=== PATIENT | male | born 1990 | race African-American/Black ===

== ENCOUNTER 2020-04-21 15:49 | Emergency (ER) | payer OTHER, SELFPAY ==
--- NOTE | 2020-04-21 16:00 | PC.NURSE ---
Patient came up to the Intake desk and states that he is unable to wait and that his ride is here. Patient is leaving the ED prior to being seen or triaged.
== END 2020-04-21 16:50 | disposition left against medical advice (07) ==
DX: Z53.21 Procedure and treatment not carried out due to patient leaving prior to being seen by health care provider (principal)
CPT/HCPCS: 99199

== ENCOUNTER 2020-04-21 18:06 | Emergency (ER) | payer OTHER, SELFPAY ==
[2020-04-21 18:32] VITALS: BP 134/80; PULSE 111; RESP 19; TEMP 37.3; O2SAT 98
[2020-04-21 18:50] LABS: Basophils Absolute Auto 0.1 K/mm3 (0.0-0.1); Basophils Percent Auto 0.5 % (0.2-1.2); Eosinophils Percent Auto 0.3 % (0-4.4); Hematocrit 43.3 % (42.0-52.0); Hemoglobin 14.3 g/dL (14.0-18.0); Immature Granulocyte Absolute 0.03 K/mm3 (0.00-0.031); Immature Granulocyte Percent A 0.3 % (0-0.5); Lymphocytes Percent Auto 16.2 % (18.3-44.2); Mean Corpuscular Hemoglobin 28.2 pg (26-34); Mean Corpuscular Volume 85.4 fl (80-100); Monocytes Absolute Auto 0.4 K/mm3 (0.1-0.6); Monocytes Percent Auto 4.5 % (2.6-8.5); Neutrophils Absolute Auto 7.7 K/mm3 (1.3-6.7); Neutrophils Percent Auto 78.2 % (45.5-73.1); Platelet Count Result 298 k/mm3 (150-375); Red Blood Count 5.07 M/mm3 (4.6-6.20); Red Cell Distribution Width 14.3 % (11.5-14.5); White Blood Count 9.9 K/mm3 (4.5-10.0)
[2020-04-21 19:16] LABS: Alanine Aminotransferase 18 U/L (4-50); Albumin Level 4.8 g/dL (3.5-5.1); Alkaline Phosphatase 67 U/L (38-126); Anion Gap 12 mmol/L (8-16); Aspartate Amino Transferase 26 U/L (17-59); Bilirubin,Total 0.5 mg/dL (0.2-1.3); Blood Urea Nitrogen 12 mg/dL (9-20); Calcium 9.2 mg/dL (8.4-10.2); Carbon Dioxide 24 mmol/L (22-30); Chloride 104 mmol/L (98-107); Estimated CRCL calculation 92 ml/min; Estimated Glomerular Filt Rate > 60; Glucose 111 mg/dL (75-110); Lipase 46 U/L (23-300); Sodium 140 mmol/L (137-145)
--- NOTE | 2020-04-22 00:02 | ED.NAVMDI ---
HPI - Nausea/Vomiting/Diarrhea General Chief complaint: Nausea/Vomiting/Diarrhea Stated complaint: vomiting Time Seen by Provider: 04/21/20 23:51 History of Present Illness HPI Narrative: Intermittent vomiting for the past 2 weeks. He had an episode just prior to arrival. He was in the waiting room for nearly 6 hours and his symptoms have resolved. At this point he would just like a prescription for zofran and note for work saying that he was here all of this time. Related Data Home Medications Medication Instructions Recorded Confirmed alprazolam 06/11/19 paliperidone palmitate [Invega mg IM 06/11/19 Sustenna] Allergies Allergy/AdvReac Type Severity Reaction Status Date / Time No Known Allergies Allergy Unverified 12/06/16 22:54 Review of Systems Review of Systems: All systems reviewed & are unremarkable except as noted in HPI and below Constitutional: Constitutional: Denies chills, Denies fever(s) and Denies weakness ENT: Denies sore throat Cardiovascular: Cardiovascular: Denies chest pain Respiratory: Respiratory: Denies dyspnea Gastrointestinal: Gastrointestinal: Denies abdominal pain, Denies constipation, Denies diarrhea, Reports nausea and Reports vomiting Genitourinary: Genitourinary: Denies dysuria Musculoskeletal: Musculoskeletal: Denies back pain Neurologic: Denies dizziness and Denies weakness [facility] Past Medical History Medical History Healthy adult Social History Social History Smoking status: Never smoker Gender identity (if verbalized by the patient): Male Exam Const: General: healthy appearing, no acute distress and alert Orientation/consciousness: patient oriented x3 HENMT: Head: normal to inspection Resp: Effort & Inspection: normal respiratory effort Auscultation: clear to auscultation bilaterally, no rales, no rhonchi and no wheezes Cardio: Jugular venous distension: no JVD Rate: regular rate Rhythm: regular rhythm Heart sounds: no murmurs GI: Inspection: non-distended GI Palp: Yes Soft to palpation and No Tenderness to palpation present (GI) Skin: General skin exam: normal color Neuro: General: patient oriented x3 and moves all extremities Speech: normal speech Gait exam (Neuro): Normal gait present Extrem: General: no edema Psych: Appearance: well kempt Affect: normal affect Course Vital Signs Vital signs: Vital Signs Temperature 37.3 C 04/21/20 18:32 Pulse Rate 111 H 04/21/20 18:32 Respiratory Rate 19 04/21/20 18:32 Blood Pressure 134/80 04/21/20 18:32 Pulse Oximetry 98 04/21/20 18:32 Temperature 36.9 C 04/22/20 00:23 Pulse Rate 79 04/22/20 00:23 Respiratory Rate 18 04/22/20 00:23 Blood Pressure 143/83 H 04/22/20 00:23 Pulse Oximetry 99 04/22/20 00:23 MDM - Nausea/Vomiting/Diarrhea MDM Narrative Medical decision making narrative: Labs reassuring. Symptoms resolved. Medical Records Attestation: I reviewed the patient's medical records. Lab Data Attestation: I reviewed the patient's lab results. Result diagrams: 04/21/20 18:39 04/21/20 18:39 Labs: Lab Results 04/21/20 04/21/20 Range/Units 18:39 18:39 WBC 9.9 (4.5-10.0) K/mm3 RBC 5.07 (4.6-6.20) M/mm3 Hgb 14.3 (14.0-18.0) g/dL Hct 43.3 (42.0-52.0) % MCV 85.4 (80-100) fl MCH 28.2 (26-34) pg MCHC 33.0 (32-36) g/dl RDW 14.3 (11.5-14.5) % Plt Count 298 (150-375) k/mm3 MPV 9.0 (7.4-10.4) fl Immature Gran % (Auto) 0.3 (0-0.5) % Neut % (Auto) 78.2 H (45.5-73.1) % Lymph % (Auto) 16.2 L (18.3-44.2) % [place] % (Auto) 4.5 (2.6-8.5) % Eos % (Auto) 0.3 (0-4.4) % Baso % (Auto) 0.5 (0.2-1.2) % Lymph # (Auto) 1.60 (0.9-3.2) K/mm3 [place] # (Auto) 0.4 (0.1-0.6) K/mm3 Eos # (Auto) 0.0 (0-0.3) K/mm3 Baso # (Auto) 0.1 (0.0-0.1) K/mm3 Abs I
[2020-04-22 00:23] VITALS: BP 143/83; PULSE 79; RESP 18; TEMP 36.9; O2SAT 99
== END 2020-04-22 00:24 | disposition home or self-care (01) ==
PROVIDERS: Emergency Provider Emergency Medicine
DX: R11.2 Nausea with vomiting, unspecified (principal)
CPT/HCPCS: 36415; 80053; 83690; 85025; 99283

== ENCOUNTER 2020-07-06 02:00 | Emergency (ER) | payer OTHER, SELFPAY ==
[2020-07-06 02:02] VITALS: BP 149/89; PULSE 76; RESP 18; TEMP 36.4; O2SAT 100
--- NOTE | 2020-07-06 02:17 | ED.GENADULT ---
HPI - General Adult General Chief complaint: Ear Stated complaint: right ear pain Time Seen by Provider: 07/06/20 02:11 History of Present Illness HPI narrative: Patient is a 29-year-old gentleman who presents emerged part with chief complaint of right ear pain. The patient states that this been going on for several weeks states that it is a deep pain in his right ear and it is feels like pressure. The patient states it feels similar to whenever he had ear infection before in the past. Patient denies fever denies chills denies difficulty swallowing or difficulty breathing. Related Data Home Medications Medication Instructions Recorded Confirmed alprazolam 06/11/19 paliperidone palmitate [Invega mg IM 06/11/19 Sustenna] Allergies Allergy/AdvReac Type Severity Reaction Status Date / Time quetiapine [From Seroquel] Allergy Unknown Verified 07/06/20 02:05 trazodone Allergy Unknown Verified 07/06/20 02:05 Review of Systems Review of Systems: Narrative: A 10 system review of systems was completed on the patient and is negative except for what is stated in the HPI. Nursing and ancillary documentation was reviewed. [facility] Past Medical History Medical History Healthy adult Social History Social History Smoking status: Never smoker Gender identity (if verbalized by the patient): Male Exam Narrative: Exam Narrative: GENERAL: Well-appearing, well-nourished, and in no acute distress. HEAD: Normocephalic, atraumatic. EYES: PERRLA and EOMI. ENT: Nares clear, no rhinorrhea or epistaxis. Mucous membranes moist. Right tympanic membrane is slightly erythematous and slightly bulging. There is no effusion. NECK: Supple. CHEST: Clear to auscultation. No respiratory distress. HEART: Regular rate and rhythm. No murmur heard. Normal peripheral pulses. ABDOMEN: Soft, nontender, nondistended, normal active bowel sounds. EXTREMITIES: Normal range of motion. No edema. SKIN: Warm, dry, no rash. NEURO: No focal deficits. Alert and oriented x3. PSYCH: Normal mood and affect. Course Vital Signs Vital signs: Vital Signs Temperature 36.4 C 07/06/20 02:02 Pulse Rate 76 07/06/20 02:02 Respiratory Rate 18 07/06/20 02:02 Blood Pressure 149/89 H 07/06/20 02:02 Pulse Oximetry 100 07/06/20 02:02 Temperature 36.4 C 07/06/20 02:02 Pulse Rate 76 07/06/20 02:02 Respiratory Rate 18 07/06/20 02:02 Blood Pressure 149/89 H 07/06/20 02:02 Pulse Oximetry 100 07/06/20 02:02 Medical Decision Making Vital Signs Vital Signs: Vital Signs Temperature 36.4 C 07/06/20 02:02 Pulse Rate 76 07/06/20 02:02 Respiratory Rate 18 07/06/20 02:02 Blood Pressure 149/89 H 07/06/20 02:02 Pulse Oximetry 100 07/06/20 02:02 Temperature 36.4 C 07/06/20 02:02 Pulse Rate 76 07/06/20 02:02 Respiratory Rate 18 07/06/20 02:02 Blood Pressure 149/89 H 07/06/20 02:02 Pulse Oximetry 100 07/06/20 02:02 Discharge Plan Discharge Clinical Impression: Otitis media Qualifiers: Otitis media type: unspecified Chronicity: acute Qualified Code(s): H66.90 - Otitis media, unspecified, unspecified ear Patient Disposition: Home, Self-Care Condition: Stable Instructions: Antibiotic Form, Ear Infection (ED) Prescriptions: New amoxicillin 500 mg capsule 500 mg PO Q12H 10 Days Qty: 20 RF: 0 No Action alprazolam 2 mg tablet RF: 0 Invega Sustenna 156 mg/mL syringe IM RF: 0 ondansetron HCl [Zofran] 4 mg tablet 4 mg PO Q6H PRN (Reason: nausea and vomiting) Qty: 10 RF: 0 Follow-up/Referrals: Malcolm Langford MD [Physician] - PHYSICIAN,[employer] [Primary Care Provider] - Time of Disposition: 02:
[2020-07-06] MEDS: IBUPROFEN 400 MG TABLET 800 MG PO (02:34)
[2020-07-06] MEDS: AMOXICILLIN 500 MG CAPSULE PO (02:34)
[2020-07-06 02:52] VITALS: BP 133/79; PULSE 89; RESP 18; O2SAT 97
== END 2020-07-06 02:54 | disposition home or self-care (01) ==
LOC: ANHED 02:23
PROVIDERS: Emergency Provider Emergency Medicine
DX: H66.91 Otitis media, unspecified, right ear (principal)
CPT/HCPCS: 99283; A9270

== ENCOUNTER 2022-06-19 16:25 | Emergency (ER) | payer OTHER, SELFPAY ==
[2022-06-19 16:54] VITALS: BP 110/67; PULSE 67; RESP 18; TEMP 36.7; O2SAT 100
--- NOTE | 2022-06-19 17:21 | ED.GENADULT ---
HPI - General Adult General Chief complaint: Nausea/Vomiting/Diarrhea Stated complaint: Vomiting Time Seen by Provider: 06/19/22 17:21 Source: patient, RN notes reviewed and old records reviewed Mode of arrival: ambulatory Limitations: no limitations History of Present Illness HPI narrative: 31-year-old male presents to the [facility] requesting a work. Patient states he called into work because of some nausea the last couple of days. States he is perfectly fine now. Is able to eat and drink without issues. Denies any chest pain or abdominal pain. Related Data Home Medications Medication Instructions Recorded Confirmed No Home Medications 06/19/22 06/19/22 Allergies Allergy/AdvReac Type Severity Reaction Status Date / Time quetiapine [From Seroquel] Allergy Unknown Verified 06/19/22 16:56 trazodone Allergy Unknown Verified 06/19/22 16:56 Review of Systems Review of Systems: All systems reviewed & are unremarkable except as noted in HPI and below Constitutional: Constitutional: Reports no additional constitutional complaints Eyes: Eyes: Reports no additional eye complaints ENT: Reports system reviewed and no additional complaints, except as documented Cardiovascular: Cardiovascular: Reports no additional cardiovascular complaints, Denies chest pain and Denies dyspnea Respiratory: Respiratory: Reports no additional respiratory complaints, Denies chest congestion, Denies cough and Denies dyspnea Gastrointestinal: Gastrointestinal: Reports no additional gastrointestinal complaints, Denies abdominal pain, Denies nausea and Denies vomiting Musculoskeletal: Musculoskeletal: Reports no additional musculoskeletal complaints Integumentary/Breasts: Skin/Breast: Reports system reviewed and no additional complaints, except as docu Neurologic: Reports system reviewed and no additional complaints, except as documented Psychiatric: Psychiatric: Reports no additional psychiatric complaints Allergic/Immunologic: Allergic/Immunologic: Reports no additional allergic/immunologic complaints PMFSH Past Medical History Medical History Healthy adult Social History Social History Smoking status: Never smoker Gender identity (if verbalized by the patient): Male Comments At the time of my signature, I reviewed and agree with the nursing past medical, surgical, social, and family history. There is no relevant family history pertinent to the patient complaint. Exam Const: General: cooperative, healthy appearing, comfortable, no acute distress, well developed, alert and well nourished Nutritional Appearance: well nourished Orientation/consciousness: patient oriented x3 Limitations: no limitations HENMT: Head: normal to inspection Ears: hearing grossly normal bilaterally and external ears normal Face/Nose/Sinus: Normal external nose present, Normal nares present, Normal nasal mucous membranes and turbinates present and normal facial exam Face and sinus: normal facial exam Mouth: Yes Normal oral and palatal mucosa present, Yes lip normal and Yes moist mucous membranes Throat: posterior oropharynx normal and uvula midline Eyes: General: appearance normal, both eyes and all related structures Alignment and Position: alignment normal Periorbital: periorbital findings normal Conjunctivae: conjunctivae normal Pupils: Equal, round and reactive pupils present EOM: EOMs intact bilaterally Neck: Neck: normal visual inspection, full ROM, no lymphadenopathy and no meningeal signs Chest: Chest palpation & inspection: normal inspection of the chest Resp: Effort & Inspection: normal respiratory effort and able to speak in complete sentences Auscultation: clear to auscultation bilaterally, no crackles, no rales, no rhonchi and no wheezes Cardio: Rate: regular rate Rhythm: regular rhythm Back/Spine/Pelvis: Cervical Sp
== END 2022-06-19 17:28 | disposition home or self-care (01) ==
PROVIDERS: Emergency Provider Nurse Practitioner
DX: R11.0 Nausea (principal)
CPT/HCPCS: 99211; G0463

== ENCOUNTER 2024-06-28 08:44 | Outpatient (CLI) | payer BC, SELFPAY ==
--- NOTE | ~2024-06-28 | XR_ITS ---
EXAMINATION: XR finger 1st LT min 2V DATE: 06/28/2024 09:04 INDICATION: Left thumb pain. TECHNIQUE: 3 views of left thumb were obtained. COMPARISON: Left hand radiographs 12/06/2016 FINDINGS: Alignment is normal. No fracture. Joint spaces are normal. IMPRESSION: 1. Normal left thumb. Reviewed, dictated and finalized at location B. COORDINATOR IMPRESSION: 1. Normal left thumb.
== END 2024-06-28 08:45 | disposition home or self-care (01) ==
PROVIDERS: PCP Internal Medicine; Visit Provider Internal Medicine
DX: M79.645 Pain in left finger(s) (principal)
CPT/HCPCS: 73140